=== PATIENT | female | born 1995 ===

== ENCOUNTER 2018-12-01 07:54 | Emergency (ER) | payer SELFPAY ==
[2018-12-01 07:58] VITALS: O2SAT 100
[2018-12-01] MEDS ORDERED: Sodium Chloride 0.9% 1,000 ML IV STA (08:39)
[2018-12-01] MEDS ORDERED: Sucralfate 1 gm/10 ml Oral Susp UD PO STA (08:54)
[2018-12-01 09:12] LABS: BASO % 0.1 % (0.0-2.0); EOS # 0.1 K/uL (0.0-0.7); EOS % 0.8 % (0.0-4.0); HEMOGLOBIN 12.6 g/dL (12.0-16.0); LYMPH # 0.8 K/uL (1.0-4.3); LYMPH % 10.6 % (20.0-40.0); MEAN CELL VOLUME 85.1 fl (81.0-99.0); MEAN CORPUSCULAR HEMOGLOBIN 29.1 pg (27.0-31.0); MEAN CORPUSCULAR HGB CONC 34.1 g/dL (33.0-37.0); MONO # 0.7 K/uL (0.0-0.8); MONO % 8.5 % (0.0-10.0); NEUT # 6.3 K/uL (1.8-7.0); RBC 4.35 Mil/uL (3.80-5.20); RED CELL DISTRIBUTION WIDTH 13.1 % (11.5-14.5); WHITE BLOOD COUNT 7.8 K/uL (4.8-10.8)
[2018-12-01] MEDS ORDERED: Sucralfate 1 gm/10 ml Oral Susp UD ONE (09:12)
[2018-12-01 09:17] LABS: ALB/GLOB RATIO 1.3 (1.0-2.1); ALBUMIN 4.5 g/dL (3.5-5.0); ALT/SGPT 28 U/L (9-52); AST/SGOT 21 U/L (14-36); BLOOD UREA NITROGEN 12 mg/dl (7-17); CALCIUM 9.7 mg/dL (8.4-10.2); GFR NON-AFRICAN AMERICAN > 60; LIPASE 60 U/L (23-300)
--- NOTE | 2018-12-01 09:55 | ED PDOC ---
HPI: Abdomen Time Seen by Provider: 12/01/18 08:12 Chief Complaint (Nursing): Abdominal Pain Chief Complaint (Provider): Abdominal Pain History Per: Patient History/Exam Limitations: no limitations Onset/Duration Of Symptoms: Days (x1) Current Symptoms Are (Timing): Still Present Location Of Pain/Discomfort: Epigastric Associated Symptoms: Nausea, Vomiting. denies: Diarrhea Additional Complaint(s): 23 year old [place] female with a past medical history of gastritis who is presenting to the ED for evaluation of epigastric pain and nausea onset last night. Patient is and 10 weeks but denies any vaginal bleeding. She admits that she had 1 episode of vomiting but states that she did not take any medications due to . Patient reports moderate pain and states that it started after she had mozzarella sticks. She denies any diarrhea and offers no other medical complaints at this time. PMD: none provided Past Medical History Reviewed: Historical Data, Nursing Documentation, Vital Signs Vital Signs: Last Vital Signs Temp 99.6 F 12/01/18 07:58 Pulse 89 12/01/18 07:58 Resp 18 12/01/18 07:58 BP 109/59 L 12/01/18 07:58 Pulse Ox 100 12/01/18 07:58 - Medical History PMH: Gastritis - Surgical History Other surgeries: axillary gland resection - Family History Family History: States: Unknown Family Hx - Social History Current smoker - smoking cessation education provided: No Alcohol: None Drugs: Denies - Home Medications Home Medications: Ambulatory Orders Medication Instructions Recorded Doxylamine/Pyridoxine HCl (B6) 1 - 2 each PO HS #16 tablet. 12/01/18 [Yeison Sanderson 10-10 mg Tablet] Sucralfate [Carafate Oral Susp] 1 gm PO QID #28 g 12/01/18 - Allergies Allergies/Adverse Reactions: Allergies Allergy/AdvReac Type Severity Reaction Status Date / Time No Known Allergies Allergy Verified 12/01/18 08:10 Review of Systems ROS Statement: Except As Marked, All Systems Reviewed And Found Negative Gastrointestinal: Positive for: Nausea, Vomiting, Abdominal Pain. Negative for: Diarrhea Genitourinary Female: Negative for: Vaginal Bleeding Physical Exam - Reviewed Nursing Documentation Reviewed: Yes Vital Signs Reviewed: Yes - Physical Exam Appears: Positive for: Non-toxic, No Acute Distress Head Exam: Positive for: ATRAUMATIC, NORMAL INSPECTION, NORMOCEPHALIC Skin: Positive for: Normal Color, Warm, DRY Eye Exam: Positive for: EOMI, Normal appearance, PERRL ENT: Positive for: Normal ENT Inspection Neck: Positive for: Normal, Painless ROM Cardiovascular/Chest: Positive for: Regular Rate, Rhythm. Negative for: Murmur Respiratory: Positive for: Normal Breath Sounds. Negative for: Respiratory Distress Gastrointestinal/Abdominal: Positive for: Soft, Tenderness (epigastric tenderness ) Back: Positive for: Normal Inspection. Negative for: L CVA Tenderness, R CVA Tenderness, Vertebral Tenderness Extremity: Positive for: Normal ROM. Negative for: Deformity, Swelling Neurological/Psych: Positive for: Awake, Alert, Normal Tone, Oriented. Negative for: Motor/Sensory Deficits - Laboratory Results Result Diagrams: 12/01/18 08:58 12/01/18 08:58 Lab Results: Total Bilirubin 1.1 mg/dl (0.2-1.3) 12/01/18 08:58 AST 21 U/L (14-36) 12/01/18 08:58 ALT 28 U/L (9-52) 12/01/18 08:58 Alkaline Phosphatase 63 U/L (38-126) 12/01/18 08:58 Total Protein 7.8 G/DL (6.3-8.2) 12/01/18 08:58 Albumin 4.5 g/dL (3.5-5.0) 12/01/18 08:58 Globulin 3.3 gm/dL (2.2-3.9) 12/01/18 08:58 Albumin/Globulin Ratio 1.3 (1.0-2.1) 12/01/18 08:58 Lipase 60 U/L (23-300) 12/01/18 08:58 Beta HCG, Quant > 31272.00 mIU/mL 12/01/18 08:58 - ECG O2 Sat by Pulse Oximetry: 100 (RA) Pulse Ox Interpretation: Normal Medical Decision Making Medical Decision Making: Time: 8:58 Impression: 23 year old female with epigastric pain and nausea in setting of early Plan: --Beta-HCG Quantitative --CMP --Lipase --ED Urine Dipstick --Urine --CBC --Carafate 1 gm PO --IV Fluids --Reglan 10 mg IVPB --Gallbladder Ultrasound --Transvaginal Ultrasound Transvaginal Ultrasound: FINDINGS: UTERUS: Gestational sac: Single intrauterine gestation with yolk sac and pole as well as amniotic membrane identified.. Heart rate: No detectable cardiac activity. age (Ultrasound estimated): 7 weeks 0 days given mean CRL 0.98 cm. Mean sac diameter 1.97 cm corresponds to 6 weeks 3 days gestation. Yolk sac measures 0.42 cm. Katiana-gestational hemorrhage: Small areas of predominantly hypoechoic fluid are identified at the subchorionic space measuring 1.9 x 1.2 x 0.7 cm at the right and 2.2 x 1.7 x 0.8 cm at the left, suggestive of subacute or even potentially chronic subchorionic hemorrhage. Date of delivery (Ultrasound estimated) : 07/22/2019. Uterus measures 8.1 x 7.8 x 4.4 cm. Normal in size and appearance. CERVIX: Measures 3.7 cm. Long and closed. A few nabothian cysts are identified at the cervix. RIGHT OVARY: Not clearly identified. LEFT OVARY: Measures 4.1 x 2.8 x 1.7 cm. No solid mass. Normal flow. Nearly isoechoic complex, corpus luteum cyst is questioned measuring 1.9 x 1.7 x 1.5 cm with solid nodule not favored. FREE FLUID: None. OTHER FINDINGS: None. IMPRESSION: A single intrauterine gestation is identified with ultrasonic age of 7 weeks 0 days, but with no detectable cardiac activity. Multifocal subchorionic hemorrhage is appreciated. Follow-up serial beta HCG analysis is advised with possible follow-up transvaginal ultrasound. Further clinical correlation advised. Right ovary not identified. Complex left ovarian corpus luteum cyst question versus small solid nodule. Follow-up transvaginal pelvic ultrasound recommended. Gallbladder Ultrasound: FINDINGS: LIVER: Measures 15.1 cm in length. Normal echogenicity of the liver parenchyma. No mass. No intrahepatic bile duct dilatation. GALLBLADDER: Gallbladder is mildly distended but otherwise appears unremarkable. No common bile duct dilatation identified. COMMON BILE DUCT: Measures 3.7 mm. No stones. No dilatation. PANCREAS: The body of the pancreas appears unremarkable but the head and tail are obscured by overling bowel/stomach gas. RIGHT KIDNEY: Measures 11.0 cm in length. Normal echogenicity. No calculus, mass, or hydronephrosis. AORTA: No aneurysmal dilatation. IVC: Unremarkable. OTHER FINDINGS: None . IMPRESSION: Partial imaging of the pancreas noted the body appear unremarkable with the remainder is obscured by overlying gastrointestinal gas. Distended but otherwise unremarkable appearing gallbladder. No cholelithiasis or biliary tree dilatation grossly evident. Exam otherwise unremarkable. 12:55 Labs reviewed with no clinically significant abnormalities. Patient reports marketed improvement in symptoms. Provider discussed absence of cardiac activity need for follow up as scheduled on 12/04. Return precautions given including vaginal bleeding and patient verbalizes understanding of plan. ------ Scribe Attestation: Documented by Lauren Cooper, acting as a scribe for Fab Manzo MD. Provider Scribe Attestation: All medical record entries made by the Scribe were at my direction and personally dictated by me. I have reviewed the chart and agree that the record accurately reflects my personal performance of the history, physical exam, medical decision making, and the department course for this patient. I have also personally directed, reviewed, and agree with the discharge instructions and disposition. Disposition - Clinical Impression Clinical Impression: Gastritis, Subchorionic hemorrhage in first trimester - Patient ED Disposition Is Patient to be Admitted: No - Disposition Referrals: [facility] [Outside] [facility] [Outside] Disposition: Against Medical Advice Disposition Time: 13:00 Condition: STABLE Prescriptions: Doxylamine/Pyridoxine HCl (B6) [Yeison Sanderson 10-10 mg Tablet] 1 - 2 each PO HS #16 tablet. Sucralfate [Carafate Oral Susp] 1 gm PO QID #28 g Instructions: Gastritis, Stomach Pain in Early Forms: [facility] (Setswana) Print Language: OMANI
--- NOTE | 2018-12-01 10:14 | US ---
Date of service: 12/01/2018 PROCEDURE: OB Pelvic Ultrasound HISTORY: abd pain in preg LMP: 09/21/2018 suggesting gestation of 10 weeks 1 day. COMPARISON: None available. FINDINGS: UTERUS: Gestational sac: Single intrauterine gestation with yolk sac and pole as well as amniotic membrane identified.. Heart rate: No detectable cardiac activity. age (Ultrasound estimated): 7 weeks 0 days given mean CRL 0.98 cm. Mean sac diameter 1.97 cm corresponds to 6 weeks 3 days gestation. Yolk sac measures 0.42 cm. Katiana-gestational hemorrhage: Small areas of predominantly hypoechoic fluid are identified at the subchorionic space measuring 1.9 x 1.2 x 0.7 cm at the right and 2.2 x 1.7 x 0.8 cm at the left, suggestive of subacute or even potentially chronic subchorionic hemorrhage. Date of delivery (Ultrasound estimated) : 07/22/2019. Uterus measures 8.1 x 7.8 x 4.4 cm. Normal in size and appearance. CERVIX: Measures 3.7 cm. Long and closed. A few nabothian cysts are identified at the cervix. RIGHT OVARY: Not clearly identified. LEFT OVARY: Measures 4.1 x 2.8 x 1.7 cm. No solid mass. Normal flow. Nearly isoechoic complex, corpus luteum cyst is questioned measuring 1.9 x 1.7 x 1.5 cm with solid nodule not favored. FREE FLUID: None. OTHER FINDINGS: None. IMPRESSION: A single intrauterine gestation is identified with ultrasonic age of 7 weeks 0 days, but with no detectable cardiac activity. Multifocal subchorionic hemorrhage is appreciated. Follow-up serial beta HCG analysis is advised with possible follow-up transvaginal ultrasound. Further clinical correlation advised. Right ovary not identified. Complex left ovarian corpus luteum cyst question versus small solid nodule. Follow-up transvaginal pelvic ultrasound recommended.
--- NOTE | 2018-12-01 10:16 | US ---
Date of service: 12/01/2018 HISTORY: abd pain in preg COMPARISON: None. TECHNIQUE: Sonographic evaluation of the right upper quadrant of the abdomen. FINDINGS: LIVER: Measures 15.1 cm in length. Normal echogenicity of the liver parenchyma. No mass. No intrahepatic bile duct dilatation. GALLBLADDER: Gallbladder is mildly distended but otherwise appears unremarkable. No common bile duct dilatation identified. COMMON BILE DUCT: Measures 3.7 mm. No stones. No dilatation. PANCREAS: The body of the pancreas appears unremarkable but the head and tail are obscured by overling bowel/stomach gas. RIGHT KIDNEY: Measures 11.0 cm in length. Normal echogenicity. No calculus, mass, or hydronephrosis. AORTA: No aneurysmal dilatation. IVC: Unremarkable. OTHER FINDINGS: None . IMPRESSION: Partial imaging of the pancreas noted the body appear unremarkable with the remainder is obscured by overlying gastrointestinal gas. Distended but otherwise unremarkable appearing gallbladder. No cholelithiasis or biliary tree dilatation grossly evident. Exam otherwise unremarkable.
[2018-12-01 13:03] VITALS: BP 106/58; PULSE 90; RESP 17; TEMP 99
== END 2018-12-01 13:02 | disposition home or self-care (01) ==
LOC: H.ER 07:54
DX: K29.70 Gastritis, unspecified, without bleeding (principal); O99.611 Diseases of the digestive system complicating pregnancy, first trimester; Z3A.01 Less than 8 weeks gestation of pregnancy; O20.8 Other hemorrhage in early pregnancy
CPT/HCPCS: 76705; 76817; 80053; 81025; 83690; 84702; 85025; 96360; 99284; J2765; J7030